=== PATIENT | female | born 1980 | race Two or more races ===

== ENCOUNTER 2020-05-06 13:54 | Emergency (ER) | payer MEDICAID ==
[~2020-05-06] VITALS: Ht 149.9 cm; Wt 63.5 kg
[2020-05-06 14:42] VITALS: BP_SYST 131
[2020-05-06 15:00] LABS: BILIRUBIN,URINE NEGATIVE (NEGATIVE); CLARITY/URINE CLEAR (CLEAR); COLOR,URINE YELLOW (YELLOW); GLUCOSE,URINE NEGATIVE (NEGATIVE); KETONES,URINE TRACE (NEGATIVE); LEUKOCYTE ESTERASE ,URINE 1+ (NEGATIVE); NITRITE, URINE NEGATIVE (NEGATIVE); PROTEIN URINE TRACE (NEGATIVE); UROBILINOGEN,URINE 0.2 (0.2-1.0)
[2020-05-06 15:07] LABS: BLOOD, URINE TRACE (NEGATIVE)
[2020-05-06] MEDS ORDERED: FLUCONAZOLE 200 MG TABLET (DIFLUCAN) PO ONE (15:15)
[2020-05-06] MEDS ORDERED: FLUC150T PO (15:15)
[2020-05-06 15:21] LABS: BACTERIA,URINE None Seen /HPF (None Seen); RBC,URINE 0-3 /HPF (0-3); YEAST,URINE Moderate /HPF (None Seen)
[2020-05-06 15:22] LABS: CALCIUM OXALATE CRYSTALS,UR None Seen /HPF (None Seen); CALCIUM PHOSPHATE CRYSTALS,UR None Seen /HPF (None Seen); TRICHOMONAS,URINE None Seen /HPF (None Seen)
[2020-05-06 17:02] VITALS: BP_SYST 131
[2020-05-08 13:06] LABS: CHLAMYDIA TRACHOMATIS NAA Negative (Negative); NEISSERIA GONORRHOEAE NAA Negative (Negative)
== END 2020-05-06 17:03 | disposition home or self-care (01) ==
LOC: SED 13:54
DX: B37.3 Candidiasis of vulva and vagina (principal)
CPT/HCPCS: 81000-TC; 81025; 82962; 87491; 87591; 99283